=== PATIENT | female | born 2000 | race Caucasian/White ===

== ENCOUNTER 2022-01-30 11:00 | Emergency (ER) | payer SELFPAY ==
[~2022-01-30] VITALS: Ht 162.6 cm; Wt 76.0 kg
[2022-01-30 11:18] VITALS: BP 132/106
== END 2022-01-30 11:31 | disposition left against medical advice (07) ==
LOC: ER 11:00
DX: F41.9 Anxiety disorder, unspecified (principal); Z53.29 Procedure and treatment not carried out because of patient's decision for other reasons